=== PATIENT | male | born 1940 | race Caucasian/White ===

== ENCOUNTER 2019-11-02 14:09 | Emergency (ER) | payer MEDICARE, SELFPAY ==
[2019-11-02 14:25] VITALS: BP 113/45; PULSE 88; RESP 20; TEMP 36.7; O2SAT 100
--- NOTE | 2019-11-02 14:43 | ED.LOWEXIN ---
HPI - Extremity Injury (Lower) General Chief Complaint: Extremity Injury, Lower Stated Complaint: right leg injury Time Seen by Provider: 11/02/19 14:35 Source: patient and RN notes reviewed Mode of arrival: ambulatory Limitations: no limitations History of Present Illness HPI Narrative: Patient presents today with an injury to his right lower leg. Approximately 45 minutes prior to arrival, a board slipped off his lap and the corner struck him in the anterior leg, causing a deep skin tear. He is up-to-date on his tetanus vaccine. History of diabetes. He is currently being treated with chemotherapy for pancreatic cancer.He is also on Coumadin. MD complaint: leg injury Related Data Home Medications Medication Instructions Recorded Confirmed amlodipine 5 mg PO DAILY 11/02/19 11/02/19 azathioprine 100 mg PO DAILY 11/02/19 11/02/19 ferrous sulfate 325 mg PO BID 11/02/19 11/02/19 furosemide 20 mg PO DAILY 11/02/19 11/02/19 glimepiride 2 mg PO QAM 11/02/19 11/02/19 glucagon [Baqsimi] 3 mg INTRANASAL ONCE PRN 11/02/19 11/02/19 icosapent ethyl [Vascepa] 2 g PO BID 11/02/19 11/02/19 imiquimod 4 mm TOPICAL 5XW 11/02/19 11/02/19 insulin glargine [Lantus U-100 40 unit SUBCUT HS 11/02/19 11/02/19 Insulin] latanoprost 1 drp OPHTHALMIC (EYE) DAILY 11/02/19 11/02/19 metolazone 2.5 mg PO DAILY 11/02/19 11/02/19 mirtazapine 15 mg PO HS 11/02/19 11/02/19 potassium chloride 20 meq PO BID 11/02/19 11/02/19 pyridostigmine bromide 60 mg PO TID 11/02/19 11/02/19 simvastatin 20 mg PO HS 11/02/19 11/02/19 spironolactone 25 mg PO DAILY 11/02/19 11/02/19 terazosin 5 mg PO BID 11/02/19 11/02/19 warfarin 4 mg PO DAILY 11/02/19 11/02/19 Allergies Allergy/AdvReac Type Severity Reaction Status Date / Time No Known Allergies Allergy Verified 11/02/19 14:20 Review of Systems Review of Systems: Narrative: CONSTITUTIONAL: Denies body aches, fever, chills, or sweats. EYES: Denies visual changes, redness, or discharge. ENT: Denies rhinorrhea, congestion, sore throat, or otalgia. CARDIOVASCULAR: Denies chest pain, palpitations, or edema. RESPIRATORY: Denies cough or dyspnea. GASTROINTESTINAL: Denies abdominal pain, nausea, vomiting, or diarrhea. GENITOURINARY: Denies dysuria or hematuria. SKIN: Denies rash, itching. +Wound to right lower leg MUSCULOSKELETAL: Denies back pain, joint pain, or myalgia. NEUROLOGIC: Denies headache, numbness, tingling, or weakness. PSYCH: Denies depression or anxiety. [facility]LY [facility] Past Medical History Medical History (Updated 11/02/19 @ 14:58 by Yvrose Aviles, [facility], ) Diabetes Glaucoma History of cataract History of DVT (deep vein thrombosis) Myasthenia gravis Osteoarthritis Paget's disease Pancreatic cancer Peripheral neuropathy Surgical History Surgical History (Updated 11/02/19 @ 14:46 by Yvrose Aviles, [facility], ) History of bilateral knee replacement Comments At time of signature, I have reviewed and agree with nursing past medical, surgical, social and family history unless otherwise noted. Please see nursing chart for further information. There is no relevant family history pertinent to the presenting complaint Exam Narrative: Exam Narrative: GENERAL: Chronically ill-appearing, well-nourished, and in no acute distress. HEAD: Normocephalic, atraumatic. EYES: EOMI. No redness or drainage. Conjunctivae normal. ENT: Mucous membranes pink and moist. NECK: Normal AROM. CHEST: No respiratory distress. EXTREMITIES: 2+ pitting edema in bilateral feet and lower legs-baseline for patient. Right lower lex3.5 deep skin tear and skin avulsion. Minimal active bleeding. Distal sensation intact. Capillary refill normal. Pedal pulses normal. SKIN: Warm, dry, no rash. Capillary refill normal. Normal skin turgor. NEURO: No focal deficits. Alert and oriented x3. Gait steady with cane. PSYCH: Normal affect. No signs of depression or anxiety. Course Vital Signs Vital signs: Vital Signs Temper
== END 2019-11-02 15:00 | disposition home or self-care (01) ==
PROVIDERS: Emergency Provider Nurse Practitioner; PCP Internal Medicine
DX: S81.811A Laceration without foreign body, right lower leg, initial encounter (principal); G70.00 Myasthenia gravis without (acute) exacerbation; E11.42 Type 2 diabetes mellitus with diabetic polyneuropathy; M19.90 Unspecified osteoarthritis, unspecified site; H40.9 Unspecified glaucoma; Z86.718 Personal history of other venous thrombosis and embolism; C25.9 Malignant neoplasm of pancreas, unspecified; Z79.01 Long term (current) use of anticoagulants; Z79.84 Long term (current) use of oral hypoglycemic drugs; Z79.4 Long term (current) use of insulin; Z79.899 Other long term (current) drug therapy; Z96.653 Presence of artificial knee joint, bilateral; W26.8XXA Contact with other sharp object(s), not elsewhere classified, initial encounter
CPT/HCPCS: 12002; 99213; G0463